=== PATIENT | male | born 1985 | race American Indian/Alaskan Native ===

== ENCOUNTER 2017-10-20 19:57 | Emergency (ER) | payer SELFPAY ==
[2017-10-20 20:46] VITALS: BP 137/92
== END 2017-10-21 05:21 | disposition left against medical advice (07) ==
LOC: ED 19:57
DX: Z53.21 Procedure and treatment not carried out due to patient leaving prior to being seen by health care provider (principal)

== ENCOUNTER 2018-08-03 13:06 | Emergency (ER) | payer SELFPAY ==
--- NOTE | 2018-08-03 16:50 | Emergency Department Report ---
ED Lower Extremity HPI - General Chief Complaint: Extremity Injury, Lower Stated Complaint: RIGHT LEG SWELLING Time Seen by Provider: 08/03/18 16:22 Source: patient Mode of arrival: Ambulatory Limitations: No Limitations - History of Present Illness Initial Comments: This is a 33-year-old -Spanish male who presents with right leg swelling and pain since yesterday while at work. Patient reports pain is worse with weightbearing. He reports pain as 9 out of 10 on pain scale and sharp achy sensation. Past medical history of asthma. Patient is a current smoker, one pack per 4 days. Patient states there is swelling to right thigh without warmth or bruising. He has not taken anything for this. He denies recent injury, warmth, erythema, numbness or tingling, or radiating pain. MD Complaint: leg injury (right thigh) Onset/Timin -: days(s) Injury: Thigh: Right Type of Injury: unknown Place: work Severity: severe Severity scale (0 -10): 9 Improves With: nothing Worsens With: weight bearing, movement Associated Symptoms: swelling, ambulatory. denies: snap/pop sensation, numbness , tingling, unable to bear weight, able to partially bear weight - Related Data Previous Rx's Medication Instructions Recorded Last Taken Type Aspirin EC [Aspirin Enteric Coated 81 mg PO QDAY #30 tablet. 11/19/15 Rx TAB] Acetaminophen/Codeine [Tylenol #3] 1 tab PO Q6H PRN #10 tab 01/08/16 Unknown Rx Famotidine [Pepcid] 20 mg PO BID #28 tablet 01/08/16 Unknown Rx Metoprolol [Lopressor TAB] 25 mg PO BID #60 tablet 01/08/16 Unknown Rx Ibuprofen [Motrin 800 MG tab] 800 mg PO Q8HR PRN #12 tablet 08/03/18 Unknown Rx methOCARBAMOL [Robaxin TAB] 500 mg PO BID #10 tab 08/03/18 Unknown Rx Allergies Allergy/AdvReac Type Severity Reaction Status Date / Time dairy Allergy Itching Uncoded 08/03/18 13:21 ED Review of Systems ROS: Stated complaint: RIGHT LEG SWELLING Other details as noted in HPI Constitutional: denies: chills, fever Respiratory: denies: cough, shortness of breath, wheezing Cardiovascular: denies: chest pain, palpitations Gastrointestinal: denies: abdominal pain, nausea, diarrhea Musculoskeletal: arthralgia (right leg pain). denies: back pain, joint swelling Skin: denies: rash, lesions Neurological: denies: headache, weakness, paresthesias Psychiatric: denies: anxiety, depression ED Past Medical Hx - Past Medical History Hx Asthma: Yes - Social History Smoking Status: Never Smoker Substance Use Type: None - Medications Home Medications: Home Medications Medication Instructions Recorded Confirmed Last Taken Type Aspirin EC [Aspirin Enteric Coated 81 mg PO QDAY #30 tablet. 11/19/1501/07/16 Rx TAB] Acetaminophen/Codeine [Tylenol #3] 1 tab PO Q6H PRN #10 tab 01/08/16 Unknown Rx Famotidine [Pepcid] 20 mg PO BID #28 tablet 01/08/16 Unknown Rx Metoprolol [Lopressor TAB] 25 mg PO BID #60 tablet 01/08/16 Unknown Rx Ibuprofen [Motrin 800 MG tab] 800 mg PO Q8HR PRN #12 tablet 08/03/18 Unknown Rx methOCARBAMOL [Robaxin TAB] 500 mg PO BID #10 tab 08/03/18 Unknown Rx ED Physical Exam - General Limitations: No Limitations General appearance: alert, in no apparent distress, obese - Respiratory Respiratory exam: Present: normal lung sounds bilaterally. Absent: respiratory distress - Cardiovascular Cardiovascular Exam: Present: regular rate, normal rhythm. Absent: systolic murmur, diastolic murmur, rubs, gallop - GI/Abdominal GI/Abdominal exam: Present: soft, normal bowel sounds. Absent: organomegaly, mass - Expanded Lower Extremity Exam Right Hip exam: Present: normal inspection, full ROM Upper Leg exam: Present: full ROM, swelling. Absent: tenderness, abrasion, laceration, ecchymosis, deformity, crepidus, dislocation, erythema Knee exam: Present: normal inspection, full ROM Lower Leg exam: Present: normal inspection, full ROM Ankle exam: Present: normal inspection, full ROM Foot/Toe exam: Present: normal inspection, full ROM Neuro vascular tendon exam: Present: no vascular compromise Gait: Positive: observed and limited by pain - Neurological Exam Neurological exam: Present: alert, oriented X3 - Psychiatric Psychiatric exam: Present: normal affect, normal mood - Skin Skin exam: Present: warm, dry, intact, normal color. Absent: rash ED Course Vital Signs 08/03/18 13:21 Temperature 98.7 F Pulse Rate 65 Respiratory 16 Rate Blood Pressure 131/67 O2 Sat by Pulse 97 Oximetry ED Lower Extremity MDM - Radiology Data Radiology results: report reviewed VASCULAR LAB.PRELIMINARY REPORT. RLE VENOUS DUPLEX DONE. NO EVIDENCE OF DVT/SVT IN VESSELS VISUALIZED. - Medical Decision Making Patient was examined by me. Vitals are normal and patient is in no acute distress. Given ibuprofen 600 mg by mouth once while in ER. Obtained a Doppler right lower extremity. VASCULAR LAB.PRELIMINARY REPORT. RLE VENOUS DUPLEX DONE. NO EVIDENCE OF DVT/SVT IN VESSELS VISUALIZED. Patient informed of results. Physical findings susceptible of muscle strain of right lower extremity. Start ibuprofen and robaxin for pain. Follow-up with orthopedic surgeon. Patient discharged home in stable condition. Follow up with PCP in 2-3 days. Critical care attestation.: If time is entered above; I have spent that time in minutes in the direct care of this critically ill patient, excluding procedure time. ED Disposition Clinical Impression: Right thigh pain Muscle strain of right thigh Qualifiers: Encounter type: initial encounter Qualified Code(s): S76.911A - Strain of unspecified muscles, fascia and tendons at thigh level, right thigh, initial encounter Disposition: - TO HOME OR SELFCARE Is pt being admited?: No Does the pt Need Aspirin: No Condition: Stable Instructions: Muscle Strain (ED) Additional Instructions: Rest Use ice or heat on affected area for 20 minutes and off for 2 hours. Take pain medication as needed for pain. Don't drive or operate heavy machinery while taking muscle relaxers because they may cause drowsiness. Follow up with Primary Care Provider in 2-3 days. Prescriptions: Ibuprofen [Motrin 800 MG tab] 800 mg PO Q8HR PRN #12 tablet PRN Reason: Pain , Severe (7-10) methOCARBAMOL [Robaxin TAB] 500 mg PO BID #10 tab Referrals: [facility] [Outside] - 3-5 Days [facility] [Outside] - 3-5 Days YONATHAN PEREA MD [Staff Physician] - 3-5 Days Forms: Work/School Release Form(ED) Time of Disposition: 17:59
[2018-08-03] MEDS ORDERED: MOTRIN PO ONE (17:49)
[2018-08-03 18:09] VITALS: BP 131/64
== END 2018-08-03 18:07 | disposition home or self-care (01) ==
LOC: ED 13:06
DX: S76.911A Strain of unspecified muscles, fascia and tendons at thigh level, right thigh, initial encounter (principal); J45.909 Unspecified asthma, uncomplicated; Z91.011 Allergy to milk products; Z79.82 Long term (current) use of aspirin; X58.XXXA Exposure to other specified factors, initial encounter; Y93.89 Activity, other specified; Y92.89 Other specified places as the place of occurrence of the external cause; Y99.8 Other external cause status
CPT/HCPCS: 99283

== ENCOUNTER 2019-05-15 19:16 | Emergency (ER) | payer SELFPAY ==
--- NOTE | 2019-05-15 20:04 | Emergency Department Report ---
Blank Doc - Documentation Documentation: This is a 34-year-old male that presents with cough with chest pain. Stated t hat chest pain is only when coughing. This initial assessment/diagnostic orders/clinical plan/treatment(s) is/are subject to change based on patient's health status, clinical progression and re-assessment by fellow clinical providers in the ED. Further treatment and workup at subsequent clinical providers discretion. Patient/guardians urged not to elope from the ED as their condition may be serious if not clinically assessed and managed. Initial orders include: 1- Patient sent to [facility] for further evaluation and treatment 2- CXR
--- NOTE | 2019-05-15 20:27 | XRay Report ---
CHEST 2 VIEWS INDICATION / CLINICAL INFORMATION: cough. COMPARISON: None available. FINDINGS: SUPPORT DEVICES: None. HEART / MEDIASTINUM: No significant abnormality. LUNGS / PLEURA: No significant pulmonary or pleural abnormality. No pneumothorax. ADDITIONAL FINDINGS: No significant additional findings. IMPRESSION: 1. No acute findings. Signer Name: Manuel Perkins MD Signed: 05/15/2019 8:22 PM Workstation Name: [id number]
--- NOTE | 2019-05-15 20:54 | Emergency Department Report ---
- General Chief Complaint: Upper Respiratory Infection Stated Complaint: DIFFICULTY IN BREATHING, CHEST PAIN Time Seen by Provider: 05/15/19 20:03 Source: patient Mode of arrival: Ambulatory Limitations: No Limitations - History of Present Illness Initial Comments: 34-year-old male with presents to ED with cough 1 day. Patient reports cough is productive. Patient reported chest wall pain with cough. Denies fever. Denies any known sick contacts. MD Complaint: cough -: days(s) (1) Severity: moderate Quality: aching Consistency: constant Improves With: nothing Worsens With: nothing Associated Symptoms: chest pain (with cough). denies: fever, chills, shortness of breath - Related Data Previous Rx's Medication Instructions Recorded Last Taken Type Aspirin EC 81 mg PO QDAY #30 tablet. 11/19/15 01/07/16 Rx Acetaminophen/Codeine [Tylenol #3] 1 tab PO Q6H PRN #10 tab 01/08/16 Unknown Rx Famotidine [Pepcid] 20 mg PO BID #28 tablet 01/08/16 Unknown Rx Metoprolol [Lopressor TAB] 25 mg PO BID #60 tablet 01/08/16 Unknown Rx Ibuprofen [Motrin 800 MG tab] 800 mg PO Q8HR PRN #12 tablet 08/03/18 Unknown Rx methOCARBAMOL [Robaxin TAB] 500 mg PO BID #10 tab 08/03/18 Unknown Rx Benzonatate [Tessalon Perles] 100 mg PO Q8HR PRN #20 capsule 05/15/19 Unknown Rx Naproxen [Naprosyn] 500 mg PO BID #20 tablet 05/15/19 Unknown Rx traMADol [Ultram] 50 mg PO Q6HR PRN #7 tablet 05/15/19 Unknown Rx Allergies Allergy/AdvReac Type Severity Reaction Status Date / Time dairy Allergy Itching Uncoded 08/03/18 13:21 ED Review of Systems ROS: Stated complaint: DIFFICULTY IN BREATHING, CHEST PAIN Other details as noted in HPI Comment: All other systems reviewed and negative Constitutional: denies: chills, fever Respiratory: cough. denies: shortness of breath Cardiovascular: chest pain (with coughing) Gastrointestinal: denies: nausea, vomiting ED Past Medical Hx - Past Medical History Previous Medical History?: Yes Hx Asthma: Yes - Surgical History Past Surgical History?: No - Social History Smoking Status: Never Smoker - Medications Home Medications: Home Medications Medication Instructions Recorded Confirmed Last Taken Type Aspirin EC 81 mg PO QDAY #30 tablet. 11/19/15 01/07/16 01/07/16 Rx Acetaminophen/Codeine [Tylenol #3] 1 tab PO Q6H PRN #10 tab 01/08/16 Unknown Rx Famotidine [Pepcid] 20 mg PO BID #28 tablet 01/08/16 Unknown Rx Metoprolol [Lopressor TAB] 25 mg PO BID #60 tablet 01/08/16 Unknown Rx Ibuprofen [Motrin 800 MG tab] 800 mg PO Q8HR PRN #12 tablet 08/03/18 Unknown Rx methOCARBAMOL [Robaxin TAB] 500 mg PO BID #10 tab 08/03/18 Unknown Rx Benzonatate [Tessalon Perles] 100 mg PO Q8HR PRN #20 capsule 05/15/19 Unknown Rx Naproxen [Naprosyn] 500 mg PO BID #20 tablet 05/15/19 Unknown Rx traMADol [Ultram] 50 mg PO Q6HR PRN #7 tablet 05/15/19 Unknown Rx ED Physical Exam - General Limitations: No Limitations General appearance: alert - Head Head exam: Present: atraumatic, normocephalic - Eye Eye exam: Present: normal appearance, PERRL, EOMI - ENT ENT exam: Present: mucous membranes moist - Neck Neck exam: Present: normal inspection - Respiratory Respiratory exam: Present: normal lung sounds bilaterally, chest wall tenderness. Absent: respiratory distress - Cardiovascular Cardiovascular Exam: Present: regular rate, normal rhythm - GI/Abdominal GI/Abdominal exam: Absent: distended - Extremities Exam Extremities exam: Present: normal inspection - Neurological Exam Neurological exam: Present: alert, oriented X3 - Psychiatric Psychiatric exam: Present: normal affect, normal mood - Skin Skin exam: Present: warm, dry, intact, normal color ED Course Vital Signs 05/15/19 05/15/19 20:03 21:11 Temperature 99.1 F Pulse Rate 76 76 Respiratory 16 18 Rate Blood Pressure 139/86 Blood Pressure 137/74 [Left] O2 Sat by Pulse 97 99 Oximetry ED Medical Decision Making - Radiology Data Radiology results: report reviewed, image reviewed - Differential Diagnosis URI, pneumonia Critical care attestation.: If time is entered above; I have spent that time in minutes in the direct care of this critically ill patient, excluding procedure time. ED Disposition Clinical Impression: Upper respiratory infection, Acute chest wall pain Disposition: - TO HOME OR SELFCARE Is pt being admited?: No Condition: Stable Instructions: Upper Respiratory Infection (ED), Chest Pain (ED) Prescriptions: Naproxen [Naprosyn] 500 mg PO BID #20 tablet Benzonatate [Tessalon Perles] 100 mg PO Q8HR PRN #20 capsule PRN Reason: Cough traMADol [Ultram] 50 mg PO Q6HR PRN #7 tablet PRN Reason: Pain Referrals: ZENA BHATT MD [Primary Care Provider] - 3-5 Days Forms: Work/School Release Form(ED) Time of Disposition: 20:54
[2019-05-15 21:13] VITALS: BP 137/74
== END 2019-05-15 21:13 | disposition home or self-care (01) ==
LOC: ED 19:16
DX: R07.89 Other chest pain (principal); J06.9 Acute upper respiratory infection, unspecified; J45.909 Unspecified asthma, uncomplicated; Z79.899 Other long term (current) drug therapy; Z91.011 Allergy to milk products
CPT/HCPCS: 71046; 99283